=== PATIENT | female | born 1995 | race Caucasian/White ===

== ENCOUNTER 2016-12-11 05:16 | Inpatient (IN) | payer BC ==
[~2016-12-11] VITALS: Ht 157.5 cm; Wt 88.8 kg
[2016-12-11] VITALS (49 sets, daily range): BP systolic 91–166; BP diastolic 51–93; PULSE 73–142; TEMP 97.7–99
[~2016-12-11 05:16] MED LIST: PRENATAL1 TA7 PO
[2016-12-11] MEDS ORDERED: [UNRECOGNIZED DRUG - OTHER] PO (07:02)
[2016-12-11] MEDS ORDERED: TUMS500 MG (07:44)
[2016-12-11 08:25] LABS: BASO # 0.1 (0.0-0.2); BASO % 0.5 % (0.0-2.0); EOS # 0.1 (0.0-0.7); EOS % 0.8 % (0-4.0); GRAN # 6.9 (1.4-6.5); GRAN % 65.3 % (42.2-75.2); LYMPH # 2.8 (1.2-3.4); LYMPH % 26.6 % (20.0-51.0); MEAN CELL VOLUME 89 fl (80.0-95.0); MEAN CORPUSCULAR HGB CONC 34 g/dl (33.0-37.0); MEAN PLATELET VOLUME 11.9 fl (7.4-10.4); MONO # 0.7 (0.1-0.6); MONO % 6.1 % (1.7-9.3); PLATELET COUNT 320 K/mm3 (130-400); RED BLOOD COUNT 3.53 M/mm3 (4.10-5.30); REDCELL DISTRIBUTION WIDTH-CV 13.9 % (11.5-14.5); WHITE BLOOD COUNT 10.6 K/mm3 (4.8-10.8)
[2016-12-11 08:26] LABS: HEMATOCRIT 31.3 % (35.0-45.0); HEMOGLOBIN 10.5 g/dl (12.0-15.0); MEAN CORPUSCULAR HEMOGLOBIN 30 pg (26.0-32.0)
[2016-12-12 00:15] VITALS: BP 99/47; PULSE 78; TEMP 98.2
[2016-12-12 05:00] VITALS: BP 109/69; PULSE 92; TEMP 97.8
[2016-12-12 08:00] VITALS: BP 92/50; PULSE 81; TEMP 97.9
[2016-12-12 16:00] VITALS: BP 119/64; PULSE 75; TEMP 98
[2016-12-12 20:45] VITALS: BP 113/57; PULSE 81; TEMP 97.7
[2016-12-13 07:30] VITALS: BP 111/61; PULSE 85; TEMP 97.9
[2016-12-13] MEDS ORDERED: MOTRIN 600600 MG/TAB PO (08:47)
== END 2016-12-13 14:00 | disposition home or self-care (01) | DRG 775 ==
LOC: LDR 05:16 → OB 07:01
PROVIDERS: Obstetrics & Gynecology
PROC: 10E0XZZ Delivery of Products of Conception, External Approach (ICD-10-PCS; principal; 2016-12-11)
PROC: 0UQMXZZ Repair Vulva, External Approach (ICD-10-PCS; 2016-12-11)
PROC: 0HQ9XZZ Repair Perineum Skin, External Approach (ICD-10-PCS; 2016-12-11)
PROC: 3E033VJ Introduction of Other Hormone into Peripheral Vein, Percutaneous Approach (ICD-10-PCS; 2016-12-11)
DX: O48.0 Post-term pregnancy (principal); O70.0 First degree perineal laceration during delivery; O76 Abnormality in fetal heart rate and rhythm complicating labor and delivery; Z3A.40 40 weeks gestation of pregnancy; Z37.0 Single live birth
CPT/HCPCS: J2590; J7120